=== PATIENT | male | born 2000 | race Caucasian/White ===

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

== ENCOUNTER 2018-05-29 22:50 | Emergency (ER) | payer OTHER, SELFPAY ==
[2018-05-29 22:52] VITALS: BP 123/70
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
[2018-05-30] MEDS ORDERED: DERMABOND TOPICAL SKIN ADHESIVE TOP ONE (00:30)
--- NOTE | 2018-05-30 08:35 | REP ---
Right forearm series: 4 views History: Rule out foreign body . Comparison radiographs are from November 21, 2014 Findings: Four views of the right forearm demonstrate normal bones, joints, and soft tissues. No fracture or subluxation is seen. No opaque foreign body noted in the forearm . However, there is a calcific opacity partially seen at the edge of the film in the anterior aspect of the upper arm anterior to the supracondylar humerus. This measures at least 10 mm in diameter appears to be dystrophic calcification. It is partially visible in retrospect on the prior forearm views as well. Impression 1 cm calcification in the anterior soft tissues of the upper arm above the elbow partially seen in the field of view, otherwise negative right forearm series. Electronically Signed by Mathieu Almaraz MD 05/30/2018 08:26 A
== END 2018-05-30 01:08 | disposition home or self-care (01) ==
LOC: M ED 22:50
DX: S61.511A Laceration without foreign body of right wrist, initial encounter (principal); F10.120 Alcohol abuse with intoxication, uncomplicated; W25.XXXA Contact with sharp glass, initial encounter; Y92.410 Unspecified street and highway as the place of occurrence of the external cause
CPT/HCPCS: 12001; 70450; 72125; 73090; 99284; G0480

== ENCOUNTER 2021-01-22 22:14 | Emergency (ER) | payer SELFPAY ==
[~2021-01-22] VITALS: Ht 180.3 cm; Wt 66.9 kg
[2021-01-22 22:14] VITALS: BP 132/79
== END 2021-01-22 22:22 | disposition left against medical advice (07) ==
LOC: M ED 22:14
DX: Z53.29 Procedure and treatment not carried out because of patient's decision for other reasons (principal)

== ENCOUNTER → 2022-06-04 | Outpatient (CLI) | payer OTHER | LOC: M WUC 10:26 | PROVIDERS: ATTEND Student in an Organized Health Care Education/Training Program | DX: S20.212A Contusion of left front wall of thorax, initial encounter (principal); X58.XXXA Exposure to other specified factors, initial encounter; Y92.9 Unspecified place or not applicable; Y93.9 Activity, unspecified; Y99.9 Unspecified external cause status ==

== ENCOUNTER 2022-10-09 21:38 | Emergency (ER) | payer OTHER ==
[~2022-10-09] VITALS: Ht 182.9 cm; Wt 70.1 kg
[2022-10-09 21:39] VITALS: BP 129/80
[2022-10-10] MEDS ORDERED: LIDVISCBTL SSP (21:21)
== END 2022-10-10 00:14 | disposition left against medical advice (07) ==
LOC: M ED 21:38
DX: Z53.21 Procedure and treatment not carried out due to patient leaving prior to being seen by health care provider (principal)

== ENCOUNTER 2022-10-10 18:53 | Emergency (ER) | payer OTHER ==
[~2022-10-10] VITALS: Ht 182.9 cm; Wt 70.5 kg
[2022-10-10 18:55] VITALS: BP 124/70
[2022-10-10] MEDS ORDERED: BOOSTRIX VACCINE (TETANUS/DIPHTH/ACEL. PERTUSSIS) 0.5ML SYR IM ONE (20:00)
[2022-10-10] MEDS ORDERED: LIDVISCBTL SSP (21:21)
== END 2022-10-10 21:26 | disposition home or self-care (01) ==
LOC: M ED 18:53
DX: S91.332A Puncture wound without foreign body, left foot, initial encounter (principal); W45.8XXA Other foreign body or object entering through skin, initial encounter; Y92.89 Other specified places as the place of occurrence of the external cause; Y93.01 Activity, walking, marching and hiking; Y99.8 Other external cause status; K08.89 Other specified disorders of teeth and supporting structures

== ENCOUNTER 2022-10-20 17:19 | Emergency (ER) | payer OTHER ==
[~2022-10-20] VITALS: Ht 182.9 cm; Wt 71.9 kg
[~2022-10-20 17:19] MED LIST: LIDVISCBTL SSP
[2022-10-20 17:21] VITALS: BP 137/74; TEMP 99.5; O2SAT 96
== END 2022-10-20 20:00 | disposition left against medical advice (07) ==
LOC: M ED 17:19
DX: R07.89 Other chest pain (principal); Z53.21 Procedure and treatment not carried out due to patient leaving prior to being seen by health care provider

== ENCOUNTER 2023-04-02 00:24 | Emergency (ER) | payer OTHER ==
[~2023-04-02] VITALS: Ht 180.3 cm; Wt 70.8 kg
[2023-04-02 00:25] VITALS: BP 139/75; TEMP 98.1; O2SAT 98
[2023-04-02] MEDS ORDERED: AMOX875T (00:29)
== END 2023-04-02 03:44 | disposition left against medical advice (07) ==
LOC: M ED 00:24
DX: Z53.21 Procedure and treatment not carried out due to patient leaving prior to being seen by health care provider (principal)

== ENCOUNTER 2023-05-30 11:20 | Emergency (ER) | payer OTHER ==
[~2023-05-30] VITALS: Ht 180.3 cm; Wt 69.7 kg
[~2023-05-30 11:20] MED LIST changes: +AMOX875T
[2023-05-30] MEDS ORDERED: PERI12LIQ (11:30)
[2023-05-30] MEDS ORDERED: IBUP-1022 (11:30)
[2023-05-30] MEDS ORDERED: OXYC1TAB23 (11:30)
[2023-05-30] MEDS ORDERED: METH4PACK (11:30)
[2023-05-30 11:52] LABS: BASO % 0.3 % (0.0-1.0); EOS # 0.1 10^3/uL (0.0-0.5); HEMATOCRIT 42.6 % (42.0-52.0); HEMOGLOBIN 14.5 g/dl (13.5-17.5); LYMPH # 2.6 10^3/uL (1.5-5.0); LYMPH % 23.4 % (24.0-44.0); MEAN CORPUSCULAR VOLUME 91.2 fl (80.0-96.0); MONO % 9.2 % (2.0-8.0); NEUTROPHILS # 7.3 10^3/uL (1.5-8.5); NEUTROPHILS % 65.9 % (36.0-66.0); PLATELET COUNT, AUTOMATED 159 10^3/uL (150-450); RED BLOOD COUNT 4.67 10^6/uL (4.30-6.10)
[2023-05-30 12:09] LABS: INR 1.3; PROTHROMBIN TIME 15.8 SECONDS (12.5-14.5)
[2023-05-30 12:10] LABS: PARTIAL THROMBOPLASTIN TIME 31.4 SECONDS (24.8-34.2)
[2023-05-30 12:20] LABS: BLOOD UREA NITROGEN 14 MG/DL (9-23); CALCIUM LEVEL 9.4 MG/DL (8.5-10.1); CARBON DIOXIDE LEVEL 31 MMOL/L (20-31); CHLORIDE LEVEL 109 MMOL/L (98-107); CPK CREATINE PHOSPHOKINASE 62 U/L (46-171); CREATININE FOR GFR 0.75 MG/DL (0.70-1.30); GLOMERULAR FILTRATION RATE > 60.0 (>60); GLUCOSE, FASTING 90 MG/DL (60-100); POTASSIUM SERUM 3.9 MMOL/L (3.5-5.1); SODIUM LEVEL 143 MMOL/L (136-145)
[2023-05-30 12:22] LABS: CK-MB VALUE MASS < 1.0 NG/ML (<3.6); MB/CK RELATIVE INDEX 1.61 (< OR =4)
[2023-05-30] MEDS ORDERED: HYOSCYAMINE SULFATE 0.125 MG SUBL TABLET SL ONE (13:30)
[2023-05-30] MEDS ORDERED: MAALOX 30 ML SUSP *UDC PO ONE (13:30)
[2023-05-30] MEDS ORDERED: ISOVUE-370 76% 100ML VIAL As Ordered ONE (14:30)
[2023-05-30 15:30] VITALS: BP 136/68
[2023-05-30 15:33] LABS: CK-MB VALUE MASS < 1.0 NG/ML (<3.6)
[2023-05-30 15:35] LABS: CPK CREATINE PHOSPHOKINASE 47 U/L (46-171); MB/CK RELATIVE INDEX 2.12 (< OR =4)
[2023-05-30 15:45] VITALS: O2SAT 98
[2023-05-30 15:53] VITALS: TEMP 97.2
== END 2023-05-30 16:01 | disposition home or self-care (01) ==
LOC: M ED 11:20
DX: K21.9 Gastro-esophageal reflux disease without esophagitis (principal); R00.1 Bradycardia, unspecified; I45.10 Unspecified right bundle-branch block; F12.90 Cannabis use, unspecified, uncomplicated; F17.210 Nicotine dependence, cigarettes, uncomplicated; F10.10 Alcohol abuse, uncomplicated; Z88.6 Allergy status to analgesic agent; Z79.1 Long term (current) use of non-steroidal anti-inflammatories (NSAID); Z79.52 Long term (current) use of systemic steroids
CPT/HCPCS: 36415; 71045; 71275; 80048; 82550; 82553; 85025; 85610; 85730; 93005; 93041; 94760; 99285; Q9967

== ENCOUNTER → 2024-08-17 | Outpatient (CLI) | payer OTHER ==
[~2024-08-17] MED LIST changes: +IBUP-1022; +METH4PACK; +OXYC1TAB23; +PERI12LIQ
== END ==
LOC: M WUC 11:58
PROVIDERS: ATTEND Physician Assistant
DX: M25.512 Pain in left shoulder (principal)